=== PATIENT | male | born 1985 | race Asian ===

== ENCOUNTER 2017-04-25 23:39 | Emergency (ER) | payer BC ==
[2017-04-26 02:21] VITALS: BP 159/97
== END 2017-04-26 02:21 | disposition home or self-care (01) ==
LOC: ED 23:39
DX: S61.210A Laceration without foreign body of right index finger without damage to nail, initial encounter (principal); E11.9 Type 2 diabetes mellitus without complications; W26.8XXA Contact with other sharp object(s), not elsewhere classified, initial encounter; Y93.89 Activity, other specified; Y92.89 Other specified places as the place of occurrence of the external cause; Y99.8 Other external cause status
CPT/HCPCS: 82962; 90715; J2001

== ENCOUNTER 2017-05-05 20:42 | Emergency (ER) | payer BC ==
[2017-05-05 20:59] VITALS: BP 139/100
== END 2017-05-05 23:00 | disposition home or self-care (01) ==
LOC: ED 20:42
DX: S61.210D Laceration without foreign body of right index finger without damage to nail, subsequent encounter (principal); E11.9 Type 2 diabetes mellitus without complications; W26.8XXD Contact with other sharp object(s), not elsewhere classified, subsequent encounter; Y92.89 Other specified places as the place of occurrence of the external cause; Y99.8 Other external cause status